=== PATIENT | female | born 1970 | race Caucasian/White ===

== ENCOUNTER 2024-03-24 09:24 | Outpatient (CLI) | payer BC | END 2024-03-24 09:25 | disposition home or self-care (01) | LOC: CSHMAMMO 09:24 | PROVIDERS: ATTEND Family Medicine | DX: Z12.31 Encounter for screening mammogram for malignant neoplasm of breast (principal); R92.1 Mammographic calcification found on diagnostic imaging of breast; Z80.3 Family history of malignant neoplasm of breast; Z91.89 Other specified personal risk factors, not elsewhere classified | CPT/HCPCS: 77063; 77067 ==

== ENCOUNTER 2024-05-09 08:44 | Outpatient (CLI) | payer BC | END 2024-05-09 08:45 | disposition home or self-care (01) | LOC: CSHMAMMO 08:44 | PROVIDERS: ATTEND Family Medicine | DX: R92.1 Mammographic calcification found on diagnostic imaging of breast (principal) | CPT/HCPCS: G0279 ==